=== PATIENT | male | born 1980 | race Caucasian/White ===

== ENCOUNTER 2016-02-18 03:14 | Emergency (ER) | payer OTHER ==
[~2016-02-18] VITALS: Ht 187.9 cm; Wt 106.6 kg
[~2016-02-18 03:14] MED LIST: AMOXICILLIN500 M3 PO; AUGMENTIN 875 M1 TAB PO; BACTRIM DS 8001 TA1 PO; CLARITIN10 MG PO
[2016-02-18] MEDS ORDERED: TAMIFLU 75MG CA75 MG PO (04:13)
== END 2016-02-18 04:44 | disposition home or self-care (01) ==
LOC: ED 03:14
DX: J09.X2 Influenza due to identified novel influenza A virus with other respiratory manifestations (principal); F17.200 Nicotine dependence, unspecified, uncomplicated

== ENCOUNTER → 2016-09-06 | Outpatient (CLI) | payer OTHER ==
[~2016-09-06] MED LIST changes: +TAMIFLU 75MG CA75 MG PO
== END | disposition home or self-care (01) ==
LOC: LAB 13:15
DX: R53.83 Other fatigue (principal)

== ENCOUNTER 2017-04-15 15:31 | Emergency (ER) | payer OTHER ==
[~2017-04-15] VITALS: Ht 187.9 cm; Wt 111.1 kg
[2017-04-15 16:02] LABS: BASO # 0.1 10*3/uL (0.0-0.1); BASO % 0.8 % (0.0-1.0); EOS # 0.3 10*3/uL (0.0-0.4); EOS % 3.9 % (1.0-4.0); HEMATOCRIT 47.3 % (42.0-52.0); HEMOGLOBIN 15.9 g/dl (14.0-18.0); LYMPH # 2.1 10*3/uL (1.3-4.4); LYMPH % 26.8 % (27.0-41.0); MEAN CELL VOLUME 89.6 fl (80.0-94.0); MEAN CORPUSCULAR HGB 30.1 pg (27.0-31.0); MEAN CORPUSCULAR HGB CONC 33.6 g/dl (33.0-37.0); MEAN PLATELET VOLUME 10.6 fl (9.6-12.3); MONO # 0.7 10*3/uL (0.1-1.0); MONO % 9.4 % (3.0-9.0); NEUT # 4.6 10*3/uL (2.3-7.9); NEUT % 58.8 % (47.0-73.0); PLATELET COUNT AUTOMATED 241 10*3/uL (130-400); RED BLOOD COUNT 5.28 10*6/uL (4.50-5.90); RED CELL DISTRI WIDTH 13.5 % (0-14.5); WHITE BLOOD COUNT 7.8 10*3/uL (4.8-10.8)
[2017-04-15 16:16] LABS: ALKALINE PHOSPHATASE 87 U/L (45-117); BUN 11 mg/dl (7-24); CHLORIDE 103 mmol/L (98-107); CREATININE 1.05 mg/dL (0.70-1.30); POTASSIUM 4.2 mmol/L (3.5-5.1); SGOT/AST 32 IU/L (3-35); SGPT/ALT 57 U/L (12-78); SODIUM 137 mmol/L (136-145); TOTAL PROTEIN 7.9 gm/dL (6.4-8.2)
[2017-04-15 16:18] LABS: TROPONIN I < 0.015 ng/ml (<0.045)
== END 2017-04-15 17:26 | disposition home or self-care (01) ==
LOC: ED 15:31
PROVIDERS: Nurse Practitioner Family
DX: R51 Headache (principal); R03.0 Elevated blood-pressure reading, without diagnosis of hypertension; F17.200 Nicotine dependence, unspecified, uncomplicated

== ENCOUNTER 2017-04-22 16:41 | Inpatient (IN) | payer OTHER ==
[2017-04-22] VITALS (8 sets, daily range): BP systolic 139–184; BP diastolic 53–120
[~2017-04-22] VITALS: Ht 187.9 cm; Wt 106.0 kg
[2017-04-22] MEDS ORDERED: CITALOPRAM HYDR10 MG PO (16:44)
[2017-04-22 17:24] LABS: BASO % 0.4 % (0.0-1.0); EOS # 0.1 10*3/uL (0.0-0.4); EOS % 1.1 % (1.0-4.0); HEMATOCRIT 46.5 % (42.0-52.0); HEMOGLOBIN 15.9 g/dl (14.0-18.0); LYMPH # 1.4 10*3/uL (1.3-4.4); LYMPH % 16.2 % (27.0-41.0); MEAN CELL VOLUME 89.4 fl (80.0-94.0); MEAN CORPUSCULAR HGB 30.6 pg (27.0-31.0); MEAN CORPUSCULAR HGB CONC 34.2 g/dl (33.0-37.0); MEAN PLATELET VOLUME 10.7 fl (9.6-12.3); MONO # 0.7 10*3/uL (0.1-1.0); MONO % 7.9 % (3.0-9.0); NEUT # 6.6 10*3/uL (2.3-7.9); NEUT % 74.2 % (47.0-73.0); PLATELET COUNT AUTOMATED 231 10*3/uL (130-400); RED CELL DISTRI WIDTH 13.4 % (0-14.5); WHITE BLOOD COUNT 8.9 10*3/uL (4.8-10.8)
[2017-04-22 17:33] LABS: ACT PARTIAL THROMBO TIME 24.6 SECONDS (20.8-31.5)
[2017-04-22 17:40] LABS: ALBUMIN 4.1 gm/dl (3.1-4.5); ALKALINE PHOSPHATASE 95 U/L (45-117); BUN 12 mg/dl (7-24); CHLORIDE 103 mmol/L (98-107); CREATININE 0.93 mg/dL (0.70-1.30); POTASSIUM 4.2 mmol/L (3.5-5.1); SGOT/AST 36 IU/L (3-35); SGPT/ALT 59 U/L (12-78); SODIUM 135 mmol/L (136-145); TOTAL PROTEIN 8.2 gm/dL (6.4-8.2)
[2017-04-22 17:43] LABS: TROPONIN I < 0.015 ng/ml (<0.045)
[2017-04-23] VITALS (7 sets, daily range): BP systolic 141–190; BP diastolic 78–118
[2017-04-23 07:06] LABS: BASO # 0.1 10*3/uL (0.0-0.1); BASO % 0.8 % (0.0-1.0); EOS # 0.2 10*3/uL (0.0-0.4); EOS % 3.1 % (1.0-4.0); HEMATOCRIT 45.4 % (42.0-52.0); HEMOGLOBIN 15.2 g/dl (14.0-18.0); LYMPH # 2.1 10*3/uL (1.3-4.4); LYMPH % 29.3 % (27.0-41.0); MEAN CELL VOLUME 90.3 fl (80.0-94.0); MEAN CORPUSCULAR HGB 30.2 pg (27.0-31.0); MEAN CORPUSCULAR HGB CONC 33.5 g/dl (33.0-37.0); MEAN PLATELET VOLUME 10.7 fl (9.6-12.3); MONO # 0.7 10*3/uL (0.1-1.0); NEUT % 56.5 % (47.0-73.0); PLATELET COUNT AUTOMATED 211 10*3/uL (130-400); RED BLOOD COUNT 5.03 10*6/uL (4.50-5.90); RED CELL DISTRI WIDTH 13.7 % (0-14.5); WHITE BLOOD COUNT 7.1 10*3/uL (4.8-10.8)
[2017-04-23 07:55] LABS: BUN 12 mg/dl (7-24); CHLORIDE 103 mmol/L (98-107); CHOLESTEROL 153 mg/dL (<200); CREATININE 1.04 mg/dL (0.70-1.30); HDL CHOLESTEROL 26 mg/dl (40-60); LDL CHOLESTEROL 94 mg/dL (9-159); PHOSPHOROUS 3.5 mg/dL (2.5-4.9); POTASSIUM 4.1 mmol/L (3.5-5.1); SODIUM 138 mmol/L (136-145); TRIGLYCERIDES 166 mg/dl (<150); VLDL CHOLESTEROL 33 mg/dL (6-40)
[2017-04-23 08:29] LABS: VITAMIN D, 25-HYDROXY 6.7 ng/mL (30-100)
[2017-04-23 11:59] LABS: URINE AMPHETAMINES < 1000 (1000ng/ml); URINE BARBITURATES > 200 (200ng/ml); URINE BENZODIAZEPINES < 200 (200ng/ml); URINE CANNABINOIDS (THC) < 50 (50ng/ml); URINE COCAINE < 300 (300ng/ml); URINE METHADONE < 300 (300ng/ml); URINE OPIATES < 300 (300ng/ml); URINE PHENCYCLIDINE < 25 (25ng/ml)
[2017-04-24] VITALS: BP 142/92
[2017-04-24 06:23] LABS: BASO # 0.1 10*3/uL (0.0-0.1); BASO % 0.8 % (0.0-1.0); EOS # 0.4 10*3/uL (0.0-0.4); HEMATOCRIT 44.4 % (42.0-52.0); HEMOGLOBIN 14.4 g/dl (14.0-18.0); LYMPH # 2.5 10*3/uL (1.3-4.4); LYMPH % 34.7 % (27.0-41.0); MEAN CELL VOLUME 92.5 fl (80.0-94.0); MEAN CORPUSCULAR HGB CONC 32.4 g/dl (33.0-37.0); MEAN PLATELET VOLUME 11.2 fl (9.6-12.3); MONO # 0.8 10*3/uL (0.1-1.0); MONO % 11.2 % (3.0-9.0); NEUT # 3.5 10*3/uL (2.3-7.9); NEUT % 48.2 % (47.0-73.0); PLATELET COUNT AUTOMATED 224 10*3/uL (130-400); RED CELL DISTRI WIDTH 13.7 % (0-14.5); WHITE BLOOD COUNT 7.2 10*3/uL (4.8-10.8)
[2017-04-24 06:41] LABS: ALBUMIN 3.5 gm/dl (3.1-4.5); BUN 18 mg/dl (7-24); CHLORIDE 102 mmol/L (98-107); CREATININE 1.05 mg/dL (0.70-1.30); PHOSPHOROUS 3.7 mg/dL (2.5-4.9); POTASSIUM 4.4 mmol/L (3.5-5.1); SODIUM 138 mmol/L (136-145)
[2017-04-24 08:00] VITALS: BP 165/110
[2017-04-24 12:00] VITALS: BP 127/77
[2017-04-24] MEDS ORDERED: AMLODIPINE BESYL5 MG PO (14:21)
[2017-04-24] MEDS ORDERED: Zestril,Prinivi40 MG PO (14:21)
== END 2017-04-24 15:55 | disposition home or self-care (01) | DRG 392 ==
LOC: ED 16:41 → 5E 17:51 → EDHOLD 17:51 → 5E 17:58
PROVIDERS: Emergency Medicine; Internal Medicine Nephrology
DX: K21.9 Gastro-esophageal reflux disease without esophagitis (principal); E83.51 Hypocalcemia; I16.1 Hypertensive emergency; E87.1 Hypo-osmolality and hyponatremia; I16.0 Hypertensive urgency; F41.9 Anxiety disorder, unspecified; F32.9 Major depressive disorder, single episode, unspecified; J45.909 Unspecified asthma, uncomplicated; D72.810 Lymphocytopenia; D72.9 Disorder of white blood cells, unspecified; E78.5 Hyperlipidemia, unspecified; F17.210 Nicotine dependence, cigarettes, uncomplicated; Z71.6 Tobacco abuse counseling; Z82.49 Family history of ischemic heart disease and other diseases of the circulatory system; Z81.8 Family history of other mental and behavioral disorders; Z83.3 Family history of diabetes mellitus

== ENCOUNTER 2017-07-23 23:03 | Emergency (ER) | payer OTHER ==
[~2017-07-23] VITALS: Ht 187.9 cm; Wt 106.6 kg
[~2017-07-23 23:03] MED LIST changes: +AMLODIPINE BESYL5 MG PO; +CITALOPRAM HYDR10 MG PO; +Zestril,Prinivi40 MG PO
[2017-07-23] MEDS ORDERED: Lopressor25 MG PO (23:25)
[2017-07-23] MEDS ORDERED: GEMFIBROZIL600 MG PO (23:25)
[2017-07-23] MEDS ORDERED: VITAMIN D31000 UNIT PO (23:26)
[2017-07-23] MEDS ORDERED: CEPHALEXIN500 M1 PO (23:54)
== END 2017-07-24 00:29 | disposition home or self-care (01) ==
LOC: ED 23:03
DX: T22.221A Burn of second degree of right elbow, initial encounter (principal); F17.200 Nicotine dependence, unspecified, uncomplicated; J45.909 Unspecified asthma, uncomplicated; E78.5 Hyperlipidemia, unspecified; G47.33 Obstructive sleep apnea (adult) (pediatric); Z79.899 Other long term (current) drug therapy; X08.8XXA Exposure to other specified smoke, fire and flames, initial encounter; Y93.89 Activity, other specified; Y92.89 Other specified places as the place of occurrence of the external cause; Y99.9 Unspecified external cause status

== ENCOUNTER 2017-10-22 22:19 | Inpatient (IN) | payer OTHER ==
[~2017-10-22] VITALS: Ht 188 cm; Wt 110.8 kg
[2017-10-22] VITALS (9 sets, daily range): BP systolic 190–220; BP diastolic 107–136
--- NOTE | ~2017-10-22 | EKG ---
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
[~2017-10-22 22:19] MED LIST changes: +CEPHALEXIN500 M1 PO; +GEMFIBROZIL600 MG PO; +Lopressor25 MG PO; +VITAMIN D31000 UNIT PO
[2017-10-22 23:25] LABS: BASO # 0.1 10*3/uL (0.0-0.1); BASO % 0.7 % (0.0-1.0); EOS # 0.6 10*3/uL (0.0-0.4); EOS % 5.9 % (1.0-4.0); HEMATOCRIT 46.7 % (42.0-52.0); HEMOGLOBIN 15.7 g/dl (14.0-18.0); LYMPH # 2.1 10*3/uL (1.3-4.4); LYMPH % 21.6 % (27.0-41.0); MEAN CELL VOLUME 90.5 fl (80.0-94.0); MEAN CORPUSCULAR HGB 30.4 pg (27.0-31.0); MEAN CORPUSCULAR HGB CONC 33.6 g/dl (33.0-37.0); MEAN PLATELET VOLUME 10.8 fl (9.6-12.3); MONO # 0.8 10*3/uL (0.1-1.0); MONO % 7.8 % (3.0-9.0); NEUT # 6.2 10*3/uL (2.3-7.9); NEUT % 63.4 % (47.0-73.0); PLATELET COUNT AUTOMATED 195 10*3/uL (130-400); RED BLOOD COUNT 5.16 10*6/uL (4.50-5.90); RED CELL DISTRI WIDTH 13.5 % (0-14.5); WHITE BLOOD COUNT 9.8 10*3/uL (4.8-10.8)
[2017-10-22 23:48] LABS: ALBUMIN 3.8 gm/dl (3.1-4.5); ALKALINE PHOSPHATASE 69 U/L (45-117); BUN 16 mg/dl (7-24); CHLORIDE 104 mmol/L (98-107); CREATININE 1.07 mg/dL (0.70-1.30); POTASSIUM 3.5 mmol/L (3.5-5.1); SGOT/AST 24 IU/L (3-35); SGPT/ALT 64 U/L (12-78); SODIUM 136 mmol/L (136-145); TOTAL PROTEIN 7.4 gm/dL (6.4-8.2)
[2017-10-22 23:49] LABS: TROPONIN I < 0.015 ng/ml (<0.045)
[2017-10-23] VITALS (7 sets, daily range): BP systolic 149–188; BP diastolic 76–112
[2017-10-23 00:13] LABS: BILIRUBIN NEGATIVE (NEGATIVE); BLOOD NEGATIVE (NEGATIVE); CLARITY CLEAR (CLEAR); COLOR YELLOW (YELLOW); GLUCOSE NEGATIVE (NEGATIVE); KETONE NEGATIVE (NEGATIVE); LEUKO ESTERASE NEGATIVE (NEGATIVE); NITRITE NEGATIVE (NEGATIVE); PH 6.5 (5.0-9.0); SPECIFIC GRAVITY 1.015 (1.005-1.030); UROBILINOGEN 0.2 E.U./dl (0.2-1.0)
[2017-10-23] MEDS ORDERED: LOSARTAN POTASS50 M1 PO (00:49)
[2017-10-23 05:46] LABS: BASO # 0.1 10*3/uL (0.0-0.1); BASO % 0.6 % (0.0-1.0); EOS # 0.3 10*3/uL (0.0-0.4); EOS % 2.2 % (1.0-4.0); HEMATOCRIT 48.1 % (42.0-52.0); HEMOGLOBIN 15.9 g/dl (14.0-18.0); LYMPH % 16.5 % (27.0-41.0); MEAN CELL VOLUME 91.6 fl (80.0-94.0); MEAN CORPUSCULAR HGB 30.3 pg (27.0-31.0); MEAN CORPUSCULAR HGB CONC 33.1 g/dl (33.0-37.0); MEAN PLATELET VOLUME 10.9 fl (9.6-12.3); MONO # 0.9 10*3/uL (0.1-1.0); MONO % 7.4 % (3.0-9.0); NEUT # 8.8 10*3/uL (2.3-7.9); NEUT % 72.7 % (47.0-73.0); PLATELET COUNT AUTOMATED 225 10*3/uL (130-400); RED BLOOD COUNT 5.25 10*6/uL (4.50-5.90); RED CELL DISTRI WIDTH 13.6 % (0-14.5); WHITE BLOOD COUNT 12.1 10*3/uL (4.8-10.8)
[2017-10-23 06:02] LABS: ALBUMIN 3.6 gm/dl (3.1-4.5); BUN 15 mg/dl (7-24); CHLORIDE 102 mmol/L (98-107); CHOLESTEROL 189 mg/dL (<200); CREATININE 0.92 mg/dL (0.70-1.30); PHOSPHOROUS 3.2 mg/dL (2.5-4.9); POTASSIUM 3.6 mmol/L (3.5-5.1); SGOT/AST 18 IU/L (3-35); SGPT/ALT 59 U/L (12-78); SODIUM 138 mmol/L (136-145); TOTAL PROTEIN 7.4 gm/dL (6.4-8.2); TRIGLYCERIDES 268 mg/dl (<150); VLDL CHOLESTEROL 54 mg/dL (6-40)
[2017-10-23 06:03] LABS: ALKALINE PHOSPHATASE 73 U/L (45-117); HDL CHOLESTEROL 32 mg/dl (40-60); LDL CHOLESTEROL 103 mg/dL (9-159)
[2017-10-23 06:09] LABS: FREE T4 1.04 ng/dl (0.76-1.46)
[2017-10-23 06:26] LABS: ACT PARTIAL THROMBO TIME 21.4 SECONDS (20.8-31.5)
[2017-10-23 07:55] LABS: VITAMIN D, 25-HYDROXY 11.8 ng/mL (30-100)
[2017-10-24] VITALS: BP 166/90
[2017-10-24 06:27] LABS: BASO # 0.1 10*3/uL (0.0-0.1); BASO % 0.8 % (0.0-1.0); EOS # 0.7 10*3/uL (0.0-0.4); EOS % 8.1 % (1.0-4.0); HEMATOCRIT 47.1 % (42.0-52.0); HEMOGLOBIN 15.4 g/dl (14.0-18.0); LYMPH # 2.7 10*3/uL (1.3-4.4); LYMPH % 30.1 % (27.0-41.0); MEAN CELL VOLUME 92.4 fl (80.0-94.0); MEAN CORPUSCULAR HGB 30.2 pg (27.0-31.0); MEAN CORPUSCULAR HGB CONC 32.7 g/dl (33.0-37.0); MONO # 0.8 10*3/uL (0.1-1.0); MONO % 8.7 % (3.0-9.0); NEUT # 4.6 10*3/uL (2.3-7.9); PLATELET COUNT AUTOMATED 195 10*3/uL (130-400); RED CELL DISTRI WIDTH 13.5 % (0-14.5); WHITE BLOOD COUNT 8.9 10*3/uL (4.8-10.8)
[2017-10-24 06:34] LABS: BUN 18 mg/dl (7-24); CHLORIDE 105 mmol/L (98-107); POTASSIUM 3.7 mmol/L (3.5-5.1); SODIUM 140 mmol/L (136-145)
[2017-10-24 08:00] VITALS: BP 180/114
[2017-10-24 12:00] VITALS: BP 154/80
[2017-10-24 16:00] VITALS: BP 176/90
[2017-10-24 18:35] VITALS: BP 184/112
[2017-10-24 20:37] VITALS: BP 176/96
[2017-10-25] VITALS: BP 163/95
[2017-10-25 06:26] LABS: BASO # 0.1 10*3/uL (0.0-0.1); BASO % 0.9 % (0.0-1.0); EOS # 0.6 10*3/uL (0.0-0.4); EOS % 6.6 % (1.0-4.0); HEMATOCRIT 47.2 % (42.0-52.0); HEMOGLOBIN 15.6 g/dl (14.0-18.0); LYMPH # 2.6 10*3/uL (1.3-4.4); LYMPH % 27.2 % (27.0-41.0); MEAN CELL VOLUME 91.7 fl (80.0-94.0); MEAN CORPUSCULAR HGB 30.3 pg (27.0-31.0); MEAN CORPUSCULAR HGB CONC 33.1 g/dl (33.0-37.0); MEAN PLATELET VOLUME 11.1 fl (9.6-12.3); MONO # 0.8 10*3/uL (0.1-1.0); MONO % 8.9 % (3.0-9.0); NEUT # 5.3 10*3/uL (2.3-7.9); NEUT % 56.1 % (47.0-73.0); PLATELET COUNT AUTOMATED 200 10*3/uL (130-400); RED BLOOD COUNT 5.15 10*6/uL (4.50-5.90); RED CELL DISTRI WIDTH 13.4 % (0-14.5); WHITE BLOOD COUNT 9.4 10*3/uL (4.8-10.8)
[2017-10-25 06:56] LABS: BUN 21 mg/dl (7-24); CHLORIDE 100 mmol/L (98-107); CREATININE 1.02 mg/dL (0.70-1.30); POTASSIUM 3.6 mmol/L (3.5-5.1); SODIUM 135 mmol/L (136-145)
[2017-10-25 08:00] VITALS: BP 182/109
[2017-10-25 12:00] VITALS: BP 156/98
[2017-10-25 16:00] VITALS: BP 157/108
[2017-10-25 17:59] VITALS: BP 160/108
[2017-10-25 20:00] VITALS: BP 150/92
[2017-10-25 23:49] LABS: URINE CREATININE RANDOM 75.6 mg/dL
[2017-10-26] VITALS: BP 148/99
[2017-10-26 12:00] VITALS: BP 109/72
[2017-10-26 16:00] VITALS: BP 108/55
[2017-10-26 20:00] VITALS: BP 131/80
[2017-10-27] VITALS: BP 137/82
[2017-10-27 05:59] LABS: BASO # 0.1 10*3/uL (0.0-0.1); BASO % 0.9 % (0.0-1.0); EOS # 0.6 10*3/uL (0.0-0.4); EOS % 7.8 % (1.0-4.0); HEMATOCRIT 49.6 % (42.0-52.0); LYMPH # 2.6 10*3/uL (1.3-4.4); LYMPH % 32.5 % (27.0-41.0); MEAN CELL VOLUME 94.1 fl (80.0-94.0); MEAN CORPUSCULAR HGB 30.4 pg (27.0-31.0); MEAN CORPUSCULAR HGB CONC 32.3 g/dl (33.0-37.0); MEAN PLATELET VOLUME 11.3 fl (9.6-12.3); MONO # 0.9 10*3/uL (0.1-1.0); MONO % 11.5 % (3.0-9.0); NEUT # 3.8 10*3/uL (2.3-7.9); NEUT % 46.9 % (47.0-73.0); PLATELET COUNT AUTOMATED 215 10*3/uL (130-400); RED BLOOD COUNT 5.27 10*6/uL (4.50-5.90); RED CELL DISTRI WIDTH 13.5 % (0-14.5)
[2017-10-27 06:16] LABS: CHLORIDE 100 mmol/L (98-107); CREATININE 1.32 mg/dL (0.70-1.30); POTASSIUM 3.7 mmol/L (3.5-5.1); SODIUM 138 mmol/L (136-145)
[2017-10-27 06:35] LABS: BUN 33 mg/dl (7-24)
[2017-10-27 08:00] VITALS: BP 118/76
[2017-10-27] MEDS ORDERED: LOSARTAN POTASS50 M1 PO (10:41)
[2017-10-27] MEDS ORDERED: Lopressor25 MG PO (10:41)
[2017-10-27] MEDS ORDERED: NIFEDIPINE ER30 M1 PO (10:41)
[2017-10-29 08:09] LABS: METANEPHRINE, PLASMA 14 pg/mL (0-62); NORMETANEPHRINE, PLASMA 51 pg/mL (0-145)
== END 2017-10-27 11:54 | disposition home or self-care (01) | DRG 305 ==
LOC: ED 22:19 → ICCU 23:54 → EDHOLD 23:54 → 4E 23:54 → ICCU 10-23 00:08 → 4E 10-23 13:18
PROVIDERS: Family Medicine; Internal Medicine; Nurse Practitioner Family; Student in an Organized Health Care Education/Training Program
DX: I16.0 Hypertensive urgency (principal); D72.810 Lymphocytopenia; R73.9 Hyperglycemia, unspecified; E83.41 Hypermagnesemia; R00.1 Bradycardia, unspecified; J45.20 Mild intermittent asthma, uncomplicated; F32.9 Major depressive disorder, single episode, unspecified; F41.9 Anxiety disorder, unspecified; E78.5 Hyperlipidemia, unspecified; G47.33 Obstructive sleep apnea (adult) (pediatric); I11.9 Hypertensive heart disease without heart failure; M32.9 Systemic lupus erythematosus, unspecified; Z82.49 Family history of ischemic heart disease and other diseases of the circulatory system; Z83.3 Family history of diabetes mellitus; Z72.0 Tobacco use; Z71.6 Tobacco abuse counseling; Z81.8 Family history of other mental and behavioral disorders; Z84.89 Family history of other specified conditions; Z88.8 Allergy status to other drugs, medicaments and biological substances; Z79.899 Other long term (current) drug therapy

== ENCOUNTER 2017-12-12 06:17 | Emergency (ER) | payer OTHER ==
[~2017-12-12] VITALS: Ht 187.9 cm; Wt 106.1 kg
[~2017-12-12 06:17] MED LIST changes: +LOSARTAN POTASS50 M1 PO; +NIFEDIPINE ER30 M1 PO
== END 2017-12-12 06:47 | disposition home or self-care (01) ==
LOC: ED 06:17
DX: L02.11 Cutaneous abscess of neck (principal); I10 Essential (primary) hypertension; E78.5 Hyperlipidemia, unspecified; J45.909 Unspecified asthma, uncomplicated; Z87.891 Personal history of nicotine dependence; Z79.899 Other long term (current) drug therapy

== ENCOUNTER → 2018-09-15 | Outpatient (CLI) | payer OTHER | END | disposition home or self-care (01) | LOC: NM 07:00 | DX: R10.84 Generalized abdominal pain (principal); R10.10 Upper abdominal pain, unspecified ==

== ENCOUNTER 2019-05-12 19:24 | Emergency (ER) | payer SELFPAY ==
[~2019-05-12] VITALS: Ht 187.9 cm; Wt 106.6 kg
[2019-05-12 20:29] LABS: BASO # 0.1 10*3/uL (0.0-0.1); EOS # 0.3 10*3/uL (0.0-0.4); EOS % 3.8 % (1.0-4.0); HEMATOCRIT 49.8 % (42.0-52.0); HEMOGLOBIN 16.6 g/dl (14.0-18.0); LYMPH # 1.7 10*3/uL (1.3-4.4); LYMPH % 22.6 % (27.0-41.0); MEAN CELL VOLUME 92.1 fl (80.0-94.0); MEAN CORPUSCULAR HGB 30.7 pg (27.0-31.0); MEAN CORPUSCULAR HGB CONC 33.3 g/dl (33.0-37.0); MEAN PLATELET VOLUME 10.7 fl (9.6-12.3); MONO # 0.7 10*3/uL (0.1-1.0); MONO % 9.5 % (3.0-9.0); NEUT # 4.6 10*3/uL (2.3-7.9); NEUT % 62.4 % (47.0-73.0); PLATELET COUNT AUTOMATED 223 10*3/uL (130-400); RED BLOOD COUNT 5.41 10*6/uL (4.50-5.90); RED CELL DISTRI WIDTH 13.4 % (0-14.5); WHITE BLOOD COUNT 7.3 10*3/uL (4.8-10.8)
[2019-05-12 20:40] LABS: ACT PARTIAL THROMBO TIME 27.6 SECONDS (20.0-32.1)
[2019-05-12] MEDS ORDERED: LISINOPRIL40 MG PO (20:41)
[2019-05-12] MEDS ORDERED: LOPRESSOR50 M1 PO (20:42)
[2019-05-12] MEDS ORDERED: NIFEDIPINE ER60 M1 PO (20:43)
[2019-05-12 20:47] LABS: ALBUMIN 3.6 gm/dl (3.1-4.5); ALKALINE PHOSPHATASE 98 U/L (45-117); BUN 19 mg/dl (7-24); CHLORIDE 107 mmol/L (98-107); CREATININE 1.21 mg/dL (0.70-1.30); LIPASE 83 U/L (73-393); POTASSIUM 3.9 mmol/L (3.5-5.1); SGOT/AST 31 IU/L (3-35); SGPT/ALT 51 U/L (12-78); SODIUM 138 mmol/L (136-145); TOTAL PROTEIN 7.8 gm/dL (6.4-8.2)
[2019-05-12] MEDS ORDERED: IBU800 MG PO (21:56)
[2019-05-12] MEDS ORDERED: CYCLOBENZAPRINE10 MG PO (21:56)
== END 2019-05-12 22:15 | disposition home or self-care (01) ==
LOC: ED 19:24
PROVIDERS: Emergency Medicine
DX: S29.8XXA Other specified injuries of thorax, initial encounter (principal); S60.812A Abrasion of left wrist, initial encounter; R10.12 Left upper quadrant pain; I10 Essential (primary) hypertension; E78.00 Pure hypercholesterolemia, unspecified; J45.909 Unspecified asthma, uncomplicated; F17.200 Nicotine dependence, unspecified, uncomplicated; Z91.048 Other nonmedicinal substance allergy status; Z79.899 Other long term (current) drug therapy; V86.59XA Driver of other special all-terrain or other off-road motor vehicle injured in nontraffic accident, initial encounter; Y93.I9 Activity, other involving external motion; Y92.828 Other wilderness area as the place of occurrence of the external cause; Y99.8 Other external cause status

== ENCOUNTER 2019-11-22 06:36 | Emergency (ER) | payer MEDICAID ==
[~2019-11-22] VITALS: Ht 187.9 cm; Wt 106.6 kg
[~2019-11-22 06:36] MED LIST changes: +CYCLOBENZAPRINE10 MG PO; +IBU800 MG PO; +LISINOPRIL40 MG PO; +LOPRESSOR50 M1 PO; +NIFEDIPINE ER60 M1 PO
[2019-11-22] MEDS ORDERED: Motrin,Rufen800 MG PO (08:06)
== END 2019-11-22 08:56 | disposition home or self-care (01) ==
LOC: ED 06:36
DX: M72.2 Plantar fascial fibromatosis (principal); Z79.899 Other long term (current) drug therapy

== ENCOUNTER → 2020-01-14 | Outpatient (CLI) | payer OTHER ==
[~2020-01-14] MED LIST changes: +Motrin,Rufen800 MG PO
== END | disposition home or self-care (01) ==
LOC: COVID19 10:47
PROVIDERS: ATTEND Family Medicine
DX: Z20.828 Contact with and (suspected) exposure to other viral communicable diseases (principal)

== ENCOUNTER → 2020-05-23 | Outpatient (CLI) | payer OTHER ==
[2020-05-23 07:56] LABS: BASO # 0.1 10*3/uL (0.0-0.1); BASO % 0.8 % (0.0-1.0); EOS # 0.4 10*3/uL (0.0-0.4); EOS % 5.4 % (1.0-4.0); HEMATOCRIT 48.1 % (42.0-52.0); LYMPH # 2.7 10*3/uL (1.3-4.4); LYMPH % 34.8 % (27.0-41.0); MEAN CELL VOLUME 91.6 fl (80.0-94.0); MEAN CORPUSCULAR HGB 30.1 pg (27.0-31.0); MEAN CORPUSCULAR HGB CONC 32.8 g/dl (33.0-37.0); MEAN PLATELET VOLUME 11.5 fl (9.6-12.3); MONO # 0.7 10*3/uL (0.1-1.0); MONO % 9.3 % (3.0-9.0); NEUT # 3.8 10*3/uL (2.3-7.9); NEUT % 49.2 % (47.0-73.0); PLATELET COUNT AUTOMATED 206 10*3/uL (130-400); RED BLOOD COUNT 5.25 10*6/uL (4.50-5.90); RED CELL DISTRI WIDTH 13.3 % (0-14.5); RETICULOCYTE % 2.44 % (0.50-2.50); WHITE BLOOD COUNT 7.7 10*3/uL (4.8-10.8)
[2020-05-23 08:00] LABS: BILIRUBIN Negative (Negative); BLOOD Negative (Negative); CLARITY Clear (Clear); COLOR Yellow (Yellow); GLUCOSE 2+ (Negative); KETONE Negative (Negative); LEUKO ESTERASE Negative (Negative); NITRITE Negative (Negative); SPECIFIC GRAVITY 1.015 (1.001-1.030); UROBILINOGEN 0.2 E.U./dl (0.0-1.0)
[2020-05-23 08:17] LABS: ALBUMIN 3.7 gm/dl (3.1-4.5); ALKALINE PHOSPHATASE 107 U/L (45-117); CHLORIDE 105 mmol/L (98-107); CHOLESTEROL 217 mg/dL (<200); CREATININE 0.96 mg/dL (0.70-1.30); GAMMA GLUTAMYL TRANSPEPTIDASE 25 U/L (15-85); HDL CHOLESTEROL 28 mg/dl (40-60); IRON 47 ug/dL (65-175); LIPASE 187 U/L (73-393); SGOT/AST 42 IU/L (3-35); SGPT/ALT 118 U/L (12-78); SODIUM 137 mmol/L (136-145); TOTAL PROTEIN 7.8 gm/dL (6.4-8.2); TRIGLYCERIDES 541 mg/dl (<150)
[2020-05-23 08:24] LABS: TOTAL IRON BINDING CAPACITY 346 ug/dl (250-450)
[2020-05-23 08:36] LABS: BUN 10 mg/dl (7-24)
[2020-05-23 08:45] LABS: BACTERIA TRACE; EPITHELIAL CELLS 0-2; MUCOUS TRACE
[2020-05-23 08:46] LABS: RBC 0-2 rbc/hpf (0-2)
[2020-05-23 09:13] LABS: FERRITIN 155.8 ng/mL (22.0-322.0); VITAMIN D, 25-HYDROXY 10.6 ng/mL (30-100)
[2020-05-24 08:08] LABS: H PYLORI IGG AB 0.24 (0.00-0.79)
[2020-05-24 13:07] LABS: H.PYLORI IGM <9.0 units (0.0-8.9)
[2020-05-24 15:07] LABS: H.PYLORI IgA <9.0 units (0.0-8.9)
== END | disposition home or self-care (01) ==
LOC: LAB 07:03 → US 07:30
PROVIDERS: ATTEND Family Medicine
DX: Z12.5 Encounter for screening for malignant neoplasm of prostate (principal); K76.0 Fatty (change of) liver, not elsewhere classified; N28.1 Cyst of kidney, acquired; R10.84 Generalized abdominal pain; R10.2 Pelvic and perineal pain; E55.9 Vitamin D deficiency, unspecified; R53.83 Other fatigue; R79.89 Other specified abnormal findings of blood chemistry; E78.5 Hyperlipidemia, unspecified

== ENCOUNTER → 2020-05-30 | Outpatient (CLI) | payer OTHER | END | disposition home or self-care (01) | LOC: NM 06:52 | PROVIDERS: ATTEND Family Medicine | DX: R10.84 Generalized abdominal pain (principal) ==

== ENCOUNTER 2020-10-08 22:21 | Emergency (ER) | payer OTHER ==
[~2020-10-08] VITALS: Ht 187.9 cm; Wt 111.1 kg
[2020-10-08] MEDS ORDERED: LOSARTAN POTASS50 M1 PO (22:31)
[2020-10-08] MEDS ORDERED: NAPROSYN500 MG PO (23:01)
== END 2020-10-08 23:15 | disposition home or self-care (01) ==
LOC: ED 22:21
DX: G56.01 Carpal tunnel syndrome, right upper limb (principal); F17.200 Nicotine dependence, unspecified, uncomplicated; Z79.899 Other long term (current) drug therapy

== ENCOUNTER 2020-11-24 15:45 | Emergency (ER) | payer OTHER ==
[~2020-11-24 15:45] MED LIST changes: +NAPROSYN500 MG PO
== END 2020-11-24 23:07 | disposition left against medical advice (07) ==
LOC: ED 15:45
DX: K62.89 Other specified diseases of anus and rectum (principal); Z53.21 Procedure and treatment not carried out due to patient leaving prior to being seen by health care provider

== ENCOUNTER 2021-02-21 18:26 | Emergency (ER) | payer OTHER ==
[~2021-02-21] VITALS: Ht 187.9 cm; Wt 106.6 kg
[2021-02-21 20:19] LABS: BASO % 0.3 % (0.0-1.0); EOS # 0.1 10*3/uL (0.0-0.4); EOS % 2.7 % (1.0-4.0); HEMATOCRIT 45.9 % (42.0-52.0); LYMPH # 1.3 10*3/uL (1.3-4.4); LYMPH % 37.5 % (27.0-41.0); MEAN CELL VOLUME 90.9 fl (80.0-94.0); MEAN CORPUSCULAR HGB 30.5 pg (27.0-31.0); MEAN CORPUSCULAR HGB CONC 33.6 g/dl (33.0-37.0); MEAN PLATELET VOLUME 11.4 fl (9.6-12.3); MONO # 0.4 10*3/uL (0.1-1.0); MONO % 10.7 % (3.0-9.0); NEUT # 1.6 10*3/uL (2.3-7.9); NEUT % 48.8 % (47.0-73.0); PLATELET COUNT AUTOMATED 171 10*3/uL (130-400); RED BLOOD COUNT 5.05 10*6/uL (4.50-5.90); RED CELL DISTRI WIDTH 13.1 % (0-14.5); WHITE BLOOD COUNT 3.4 10*3/uL (4.8-10.8)
[2021-02-21 20:38] LABS: ALBUMIN 3.5 gm/dl (3.1-4.5); ALKALINE PHOSPHATASE 77 U/L (45-117); BUN 22 mg/dl (7-24); CHLORIDE 109 mmol/L (98-107); CREATININE 0.88 mg/dL (0.70-1.30); POTASSIUM 4.6 mmol/L (3.5-5.1); SGOT/AST 40 IU/L (3-35); SGPT/ALT 68 U/L (12-78); SODIUM 138 mmol/L (136-145); TOTAL PROTEIN 7.4 gm/dL (6.4-8.2)
== END 2021-02-21 21:27 | disposition home or self-care (01) ==
LOC: ED 18:26
PROVIDERS: Internal Medicine
DX: U07.1 COVID-19 (principal); B34.9 Viral infection, unspecified; R73.9 Hyperglycemia, unspecified; D72.819 Decreased white blood cell count, unspecified; F17.200 Nicotine dependence, unspecified, uncomplicated; Z79.899 Other long term (current) drug therapy

== ENCOUNTER 2021-03-18 19:04 | Emergency (ER) | payer OTHER ==
[~2021-03-18] VITALS: Ht 187.9 cm; Wt 106.6 kg
[2021-03-18 19:43] LABS: BASO % 0.4 % (0.0-1.0); EOS # 0.2 10*3/uL (0.0-0.4); EOS % 2.2 % (1.0-4.0); HEMATOCRIT 45.2 % (42.0-52.0); LYMPH # 1.7 10*3/uL (1.3-4.4); LYMPH % 21.5 % (27.0-41.0); MEAN CORPUSCULAR HGB 30.5 pg (27.0-31.0); MEAN CORPUSCULAR HGB CONC 33.8 g/dl (33.0-37.0); MEAN PLATELET VOLUME 10.6 fl (9.6-12.3); MONO # 0.7 10*3/uL (0.1-1.0); NEUT # 5.2 10*3/uL (2.3-7.9); NEUT % 66.8 % (47.0-73.0); PLATELET COUNT AUTOMATED 246 10*3/uL (130-400); RED BLOOD COUNT 5.02 10*6/uL (4.50-5.90); RED CELL DISTRI WIDTH 13.2 % (0-14.5); WHITE BLOOD COUNT 7.8 10*3/uL (4.8-10.8)
[2021-03-18 19:58] LABS: ALBUMIN 3.5 gm/dl (3.1-4.5); ALKALINE PHOSPHATASE 91 U/L (45-117); BUN 11 mg/dl (7-24); CHLORIDE 106 mmol/L (98-107); POTASSIUM 3.7 mmol/L (3.5-5.1); SGOT/AST 43 IU/L (3-35); SGPT/ALT 81 U/L (12-78); SODIUM 138 mmol/L (136-145); TOTAL PROTEIN 7.5 gm/dL (6.4-8.2)
[2021-03-18 21:24] LABS: BILIRUBIN Negative (Negative); BLOOD Negative (Negative); CLARITY Clear (Clear); COLOR Yellow (Yellow); GLUCOSE Negative (Negative); KETONE Negative (Negative); LEUKO ESTERASE Negative (Negative); NITRITE Negative (Negative); PH 5.5 (4.5-8.0); SPECIFIC GRAVITY >= 1.030 (1.001-1.030)
[2021-03-18 21:31] LABS: HYALINE CAST TNTC; MUCOUS TRACE; RBC 0-2 rbc/hpf (0-2)
[2021-03-18] MEDS ORDERED: METRONIDAZOLE500 M1 PO (23:10)
[2021-03-18] MEDS ORDERED: CIPRO500 MG PO (23:10)
== END 2021-03-18 23:35 | disposition home or self-care (01) ==
LOC: ED 19:04
PROVIDERS: Physician Assistant
DX: K52.9 Noninfective gastroenteritis and colitis, unspecified (principal); Z20.2 Contact with and (suspected) exposure to infections with a predominantly sexual mode of transmission; Z90.49 Acquired absence of other specified parts of digestive tract; Z79.899 Other long term (current) drug therapy; Z87.891 Personal history of nicotine dependence

== ENCOUNTER 2021-10-01 18:39 | Emergency (ER) | payer OTHER ==
[~2021-10-01] VITALS: Ht 187.9 cm; Wt 107.0 kg
[~2021-10-01 18:39] MED LIST changes: +CIPRO500 MG PO; +METRONIDAZOLE500 M1 PO
[2021-10-01] MEDS ORDERED: PROAIR HFA8.5 GM INH (22:35)
== END 2021-10-01 23:53 | disposition home or self-care (01) ==
LOC: ED 18:39
DX: U07.1 COVID-19 (principal); I10 Essential (primary) hypertension; E11.9 Type 2 diabetes mellitus without complications; E78.5 Hyperlipidemia, unspecified; J45.909 Unspecified asthma, uncomplicated; F17.200 Nicotine dependence, unspecified, uncomplicated; Z79.899 Other long term (current) drug therapy

== ENCOUNTER 2021-12-26 08:28 | Emergency (ER) | payer OTHER ==
[~2021-12-26] VITALS: Ht 182.8 cm; Wt 105.7 kg
[~2021-12-26 08:28] MED LIST changes: +PROAIR HFA8.5 GM INH
[2021-12-26] MEDS ORDERED: VIBRA-TAB100 MG PO (09:42)
== END 2021-12-26 09:46 | disposition home or self-care (01) ==
LOC: ED 08:28
DX: L02.214 Cutaneous abscess of groin (principal); F17.200 Nicotine dependence, unspecified, uncomplicated; Z91.048 Other nonmedicinal substance allergy status; Z79.899 Other long term (current) drug therapy; Z79.2 Long term (current) use of antibiotics

== ENCOUNTER → 2021-12-28 | Outpatient (CLI) | payer OTHER ==
[~2021-12-28] MED LIST changes: +VIBRA-TAB100 MG PO
== END | disposition home or self-care (01) ==
LOC: WOUNDCARE 00:55
PROVIDERS: ATTEND Nurse Practitioner Family
DX: L02.91 Cutaneous abscess, unspecified (principal); I10 Essential (primary) hypertension; F17.200 Nicotine dependence, unspecified, uncomplicated; Z90.49 Acquired absence of other specified parts of digestive tract

== ENCOUNTER → 2022-01-01 | Outpatient (CLI) | payer OTHER | END | disposition home or self-care (01) | LOC: WOUNDCARE 01:43 | PROVIDERS: ATTEND Nurse Practitioner Family | DX: L02.91 Cutaneous abscess, unspecified (principal); I10 Essential (primary) hypertension; F17.200 Nicotine dependence, unspecified, uncomplicated; Z90.49 Acquired absence of other specified parts of digestive tract ==

== ENCOUNTER 2022-03-12 08:34 | Emergency (ER) | payer OTHER ==
[~2022-03-12] VITALS: Wt 106.6 kg
[2022-03-12 09:38] LABS: BASO # 0.1 10*3/uL (0.0-0.1); BASO % 0.6 % (0.0-1.0); EOS # 0.5 10*3/uL (0.0-0.4); EOS % 5.5 % (1.0-4.0); HEMATOCRIT 48.8 % (42.0-52.0); LYMPH # 1.9 10*3/uL (1.3-4.4); MEAN CORPUSCULAR HGB 29.9 pg (27.0-31.0); MEAN CORPUSCULAR HGB CONC 33.2 g/dl (33.0-37.0); MEAN PLATELET VOLUME 10.7 fl (9.6-12.3); MONO # 0.9 10*3/uL (0.1-1.0); MONO % 10.2 % (3.0-9.0); NEUT % 60.5 % (47.0-73.0); PLATELET COUNT AUTOMATED 253 10*3/uL (130-400); RED BLOOD COUNT 5.42 10*6/uL (4.50-5.90); RED CELL DISTRI WIDTH 13.1 % (0-14.5); WHITE BLOOD COUNT 8.3 10*3/uL (4.8-10.8)
[2022-03-12 09:54] LABS: ALKALINE PHOSPHATASE 81 U/L (46-116); BUN 12 mg/dl (9-23); CHLORIDE 106 mmol/L (98-107); LIPASE 41 U/L (12-53); POTASSIUM 3.7 mmol/L (3.4-5.1); SGPT/ALT 40 U/L (10-49); TOTAL PROTEIN 7.1 gm/dL (6.0-8.0)
[2022-03-12] MEDS ORDERED: FLONASE ALLERG9.9 ML NAS (11:46)
[2022-03-12] MEDS ORDERED: AMOX-CLAV 875-1 EACH PO (11:46)
== END 2022-03-12 11:58 | disposition home or self-care (01) ==
LOC: ED 08:34
PROVIDERS: Emergency Medicine
DX: J01.90 Acute sinusitis, unspecified (principal); Z91.09 Other allergy status, other than to drugs and biological substances; F17.200 Nicotine dependence, unspecified, uncomplicated

== ENCOUNTER 2022-05-20 10:05 | Emergency (ER) | payer OTHER ==
[~2022-05-20] VITALS: Ht 187.9 cm; Wt 108.9 kg
[~2022-05-20 10:05] MED LIST changes: +AMOX-CLAV 875-1 EACH PO; +FLONASE ALLERG9.9 ML NAS
[2022-05-20] MEDS ORDERED: HYDROCODONE-AC1 EAC1 PO (12:05)
== END 2022-05-20 12:44 | disposition home or self-care (01) ==
LOC: ED 10:05
DX: S22.42XA Multiple fractures of ribs, left side, initial encounter for closed fracture (principal); M25.562 Pain in left knee; I10 Essential (primary) hypertension; F41.9 Anxiety disorder, unspecified; J45.909 Unspecified asthma, uncomplicated; E78.00 Pure hypercholesterolemia, unspecified; Z88.8 Allergy status to other drugs, medicaments and biological substances; Z87.891 Personal history of nicotine dependence; W10.9XXA Fall (on) (from) unspecified stairs and steps, initial encounter; Y93.89 Activity, other specified; Y92.89 Other specified places as the place of occurrence of the external cause; Y99.8 Other external cause status

== ENCOUNTER → 2022-06-06 | Outpatient (CLI) | payer OTHER ==
[~2022-06-06] MED LIST changes: +HYDROCODONE-AC1 EAC1 PO
== END | disposition home or self-care (01) ==
LOC: MRI 08:24
PROVIDERS: ATTEND Family Medicine
DX: S83.242A Other tear of medial meniscus, current injury, left knee, initial encounter (principal); M22.42 Chondromalacia patellae, left knee; X58.XXXA Exposure to other specified factors, initial encounter; Y93.89 Activity, other specified; Y92.89 Other specified places as the place of occurrence of the external cause; Y99.8 Other external cause status

== ENCOUNTER → 2022-12-20 | Outpatient (CLI) | payer OTHER ==
[2022-12-20 10:44] LABS: BASO # 0.1 10*3/uL (0.0-0.1); EOS # 0.4 10*3/uL (0.0-0.4); EOS % 5.8 % (1.0-4.0); HEMATOCRIT 47.8 % (42.0-52.0); LYMPH # 1.9 10*3/uL (1.3-4.4); LYMPH % 26.7 % (27.0-41.0); MEAN CORPUSCULAR HGB 32.2 pg (27.0-31.0); MEAN CORPUSCULAR HGB CONC 35.8 g/dl (33.0-37.0); MEAN PLATELET VOLUME 11.7 fl (9.6-12.3); MONO # 0.6 10*3/uL (0.1-1.0); MONO % 8.8 % (3.0-9.0); NEUT # 4.2 10*3/uL (2.3-7.9); NEUT % 57.4 % (47.0-73.0); PLATELET COUNT AUTOMATED 220 10*3/uL (130-400); RED BLOOD COUNT 5.31 10*6/uL (4.50-5.90); RED CELL DISTRI WIDTH 12.8 % (0-14.5); RETICULOCYTE % 2.45 % (0.50-2.50); WHITE BLOOD COUNT 7.2 10*3/uL (4.8-10.8)
[2022-12-20 10:53] LABS: BILIRUBIN Negative (Negative); BLOOD Negative (Negative); CLARITY Clear (Clear); COLOR Yellow (Yellow); GLUCOSE 3+ (Negative); KETONE Negative (Negative); LEUKO ESTERASE Negative (Negative); NITRITE Negative (Negative); SPECIFIC GRAVITY >= 1.030 (1.001-1.030); UROBILINOGEN 0.2 E.U./dl (0.0-1.0)
[2022-12-20 11:04] LABS: EPITHELIAL CELLS 0-2; RBC 0-2 rbc/hpf (0-2)
[2022-12-20 11:13] LABS: ALKALINE PHOSPHATASE 100 U/L (46-116); BUN 14 mg/dl (9-23); CHLORIDE 103 mmol/L (98-107); CHOLESTEROL 199 mg/dL (<200); GAMMA GLUTAMYL TRANSPEPTIDASE 34 U/L (0-73); POTASSIUM 4.1 mmol/L (3.4-5.1); SGPT/ALT 133 U/L (5-49); T3 UPTAKE 19.5 % (22.4-36.7); THYROXINE (T4) TOTAL 7.8 ug/dl (4.5-10.9); TOTAL PROTEIN 7.5 gm/dL (6.0-8.0); TRIGLYCERIDES 588 mg/dl (<150)
[2022-12-20 11:20] LABS: VITAMIN D, 25-HYDROXY 8.7 ng/mL (30-100)
== END | disposition home or self-care (01) ==
LOC: LAB 09:49
PROVIDERS: ATTEND Family Medicine
DX: E78.5 Hyperlipidemia, unspecified (principal); E55.9 Vitamin D deficiency, unspecified; R79.89 Other specified abnormal findings of blood chemistry; R53.83 Other fatigue; R74.8 Abnormal levels of other serum enzymes

== ENCOUNTER 2023-01-24 18:43 | Emergency (ER) | payer OTHER ==
[~2023-01-24] VITALS: Ht 187.9 cm; Wt 108.9 kg
[2023-01-24] MEDS ORDERED: PENICILLIN VK500 MG PO (19:13)
== END 2023-01-24 19:28 | disposition home or self-care (01) ==
LOC: ED 18:43
DX: K02.9 Dental caries, unspecified (principal); K08.89 Other specified disorders of teeth and supporting structures; I10 Essential (primary) hypertension; F41.9 Anxiety disorder, unspecified; J45.909 Unspecified asthma, uncomplicated; E78.00 Pure hypercholesterolemia, unspecified; Z88.8 Allergy status to other drugs, medicaments and biological substances; F17.200 Nicotine dependence, unspecified, uncomplicated

== ENCOUNTER 2023-06-27 09:23 | Inpatient (IN) | payer SELFPAY ==
[~2023-06-27] VITALS: Ht 190.5 cm; Wt 98.6 kg
[2023-06-27] VITALS (12 sets, daily range): BP systolic 139–208; BP diastolic 82–124
[~2023-06-27 09:23] MED LIST changes: +PENICILLIN VK500 MG PO
[2023-06-27] MEDS ORDERED: Labetalol Hydrochloride 20 MG/4 ML SYR IV ONE ×3 (10:05→13:15)
[2023-06-27 10:09] LABS: BASO # 0.1 10*3/uL (0.0-0.1); BASO % 0.8 % (0.0-1.0); EOS # 0.3 10*3/uL (0.0-0.4); EOS % 4.4 % (1.0-4.0); LYMPH # 1.3 10*3/uL (1.3-4.4); LYMPH % 18.2 % (27.0-41.0); MEAN CELL VOLUME 91.6 fl (80.0-94.0); MEAN CORPUSCULAR HGB 30.7 pg (27.0-31.0); MEAN CORPUSCULAR HGB CONC 33.5 g/dl (33.0-37.0); MEAN PLATELET VOLUME 11.2 fl (9.6-12.3); MONO # 0.6 10*3/uL (0.1-1.0); MONO % 8.3 % (3.0-9.0); NEUT # 4.8 10*3/uL (2.3-7.9); NEUT % 67.9 % (47.0-73.0); PLATELET COUNT AUTOMATED 217 10*3/uL (130-400); RED BLOOD COUNT 5.24 10*6/uL (4.50-5.90); RED CELL DISTRI WIDTH 12.5 % (0-14.5); WHITE BLOOD COUNT 7.1 10*3/uL (4.8-10.8)
[2023-06-27 10:47] LABS: ALKALINE PHOSPHATASE 89 U/L (46-116); BUN 11 mg/dl (9-23); CHLORIDE 103 mmol/L (98-107); POTASSIUM 3.9 mmol/L (3.4-5.1); SGPT/ALT 140 U/L (5-49); TOTAL PROTEIN 6.9 gm/dL (6.0-8.0)
[2023-06-27] MEDS ORDERED: NIFEdipine 30 MG TAB PO ONE (13:20)
[2023-06-27] MEDS ORDERED: diphenhydrAMINE hydrochloride 50 MG/ML VIAL IV ONE (14:05)
[2023-06-27] MEDS ORDERED: Ondansetron Hydrochloride 4 MG/2 ML VIAL IV ONE (14:05)
[2023-06-27] MEDS ORDERED: Dexamethasone Sodium Phospha 20 MG/5 ML VIAL IV ONE (14:05)
[2023-06-27] MEDS ORDERED: niCARdipine hydrochloride 25 MG in SODIUM CHLORIDE 0.9% 240 ML IV SCH (14:10)
[2023-06-27] MEDS ORDERED: Ondansetron Hydrochloride 4 MG/2 ML VIAL IV PRN (14:40)
[2023-06-27] MEDS ORDERED: SODIUM CHLORIDE 0.9% 1,000 ML IV ONE (14:45)
[2023-06-27] MEDS ORDERED: Nicotine 21 MG PATCH T SCH (15:00)
[2023-06-27] MEDS ORDERED: DEXTROSE 10 % IN WATER 250 ML IV PRN (15:20)
[2023-06-27] MEDS ORDERED: INSULIN LISPRO 1 UNIT/0.01 ML SQ SCH (16:30)
[2023-06-27] MEDS ORDERED: IBU800 MG PO (17:02)
[2023-06-27] MEDS ORDERED: GEMFIBROZIL 600 MG TAB PO SCH ×2 (18:00→22:00)
[2023-06-27] MEDS ORDERED: IBUPROFEN 600 MG TAB PO ONE (21:40)
[2023-06-28] VITALS: BP 131/80
[2023-06-28 04:00] VITALS: BP 118/67
[2023-06-28 06:22] LABS: BASO % 0.1 % (0.0-1.0); HEMATOCRIT 49.4 % (42.0-52.0); LYMPH # 1.2 10*3/uL (1.3-4.4); LYMPH % 8.3 % (27.0-41.0); MEAN CORPUSCULAR HGB 30.7 pg (27.0-31.0); MEAN CORPUSCULAR HGB CONC 33.4 g/dl (33.0-37.0); MEAN PLATELET VOLUME 11.3 fl (9.6-12.3); MONO # 0.7 10*3/uL (0.1-1.0); MONO % 4.5 % (3.0-9.0); NEUT # 12.8 10*3/uL (2.3-7.9); NEUT % 86.8 % (47.0-73.0); PLATELET COUNT AUTOMATED 249 10*3/uL (130-400); RED BLOOD COUNT 5.37 10*6/uL (4.50-5.90); RED CELL DISTRI WIDTH 12.5 % (0-14.5); WHITE BLOOD COUNT 14.8 10*3/uL (4.8-10.8)
[2023-06-28 06:54] LABS: ALKALINE PHOSPHATASE 85 U/L (46-116); BUN 17 mg/dl (9-23); CHLORIDE 103 mmol/L (98-107); CHOLESTEROL 196 mg/dL (<200); FREE T4 0.88 ng/dl (0.89-1.76); LDL CHOLESTEROL 126 mg/dL (9-159); POTASSIUM 4.3 mmol/L (3.4-5.1); SGPT/ALT 119 U/L (5-49); TOTAL PROTEIN 6.9 gm/dL (6.0-8.0); TRIGLYCERIDES 201 mg/dl (<150)
[2023-06-28 08:00] VITALS: BP 141/82
[2023-06-28] MEDS ORDERED: HYDROCHLOROTHIAZIDE 12.5 MG CAP PO SCH (10:00)
[2023-06-28] MEDS ORDERED: Losartan Potassium 50 MG TAB PO SCH (10:00)
[2023-06-28] MEDS ORDERED: NIFEdipine 30 MG TAB PO SCH (10:00)
[2023-06-28 12:00] VITALS: BP 158/87
[2023-06-28] MEDS ORDERED: LOSARTAN POTASS50 M1 PO (14:04)
[2023-06-28] MEDS ORDERED: GEMFIBROZIL600 MG PO (14:04)
[2023-06-28] MEDS ORDERED: NIFEDIPINE ER30 M1 PO (14:04)
[2023-06-28] MEDS ORDERED: HYDR12.5C PO (14:04)
[2023-06-28] MEDS ORDERED: METFORMIN XR500 MG PO (14:04)
[2023-06-28] MEDS ORDERED: LANTUS SOL100 UNIT/1 SC (14:04)
== END 2023-06-28 18:04 | disposition home or self-care (01) | DRG 305 ==
LOC: ED 09:23 → EDHOLD 14:23 → ICCU 14:23 → EDHOLD 14:50 → ICCU 15:26
PROVIDERS: Internal Medicine; ADMIT Internal Medicine; ATTEND Internal Medicine
DX: I16.1 Hypertensive emergency (principal); E87.1 Hypo-osmolality and hyponatremia; I10 Essential (primary) hypertension; J45.909 Unspecified asthma, uncomplicated; F41.1 Generalized anxiety disorder; G47.33 Obstructive sleep apnea (adult) (pediatric); R74.01 Elevation of levels of liver transaminase levels; E11.65 Type 2 diabetes mellitus with hyperglycemia; J32.2 Chronic ethmoidal sinusitis; E78.2 Mixed hyperlipidemia; Z90.49 Acquired absence of other specified parts of digestive tract; Z81.8 Family history of other mental and behavioral disorders; Z91.048 Other nonmedicinal substance allergy status; Z82.49 Family history of ischemic heart disease and other diseases of the circulatory system; Z79.4 Long term (current) use of insulin

== ENCOUNTER 2023-09-24 08:46 | Emergency (ER) | payer MEDICAID ==
[~2023-09-24] VITALS: Ht 187.9 cm; Wt 106.6 kg
[~2023-09-24 08:46] MED LIST changes: +HYDR12.5C PO; +LANTUS SOL100 UNIT/1 SC; +METFORMIN XR500 MG PO
[2023-09-24] MEDS ORDERED: AMOX-CLAV 875-1 EACH PO (10:26)
== END 2023-09-24 10:43 | disposition home or self-care (01) ==
LOC: ED 08:46
DX: J32.9 Chronic sinusitis, unspecified (principal); Z20.822 Contact with and (suspected) exposure to COVID-19; I10 Essential (primary) hypertension; F17.200 Nicotine dependence, unspecified, uncomplicated; Z88.8 Allergy status to other drugs, medicaments and biological substances; Z79.899 Other long term (current) drug therapy; Z79.4 Long term (current) use of insulin; Z90.49 Acquired absence of other specified parts of digestive tract

== ENCOUNTER 2024-01-11 12:24 | Inpatient (IN) | payer SELFPAY ==
[~2024-01-11] VITALS: Ht 187.9 cm; Wt 102.1 kg
[2024-01-11] VITALS (14 sets, daily range): BP systolic 166–225; BP diastolic 95–140
[2024-01-11] MEDS ORDERED: NIFEdipine 30 MG TAB PO SCH (12:55)
[2024-01-11] MEDS ORDERED: ENALAPRILAT 2.5 MG/2 ML VIAL IV ONE (12:55)
[2024-01-11 13:42] LABS: BUN 12 mg/dl (9-23); CHLORIDE 103 mmol/L (98-107); POTASSIUM 4.2 mmol/L (3.4-5.1)
[2024-01-11] MEDS ORDERED: Metoclopramide Hydrochloride 10 MG/2 ML VIAL IV ONE (13:55)
[2024-01-11] MEDS ORDERED: diphenhydrAMINE hydrochloride 50 MG/ML VIAL IV ONE (13:55)
[2024-01-11 16:16] LABS: BASO # 0.1 10*3/uL (0.0-0.1); BASO % 0.8 % (0.0-1.0); EOS # 0.5 10*3/uL (0.0-0.4); EOS % 5.8 % (1.0-4.0); HEMATOCRIT 49.9 % (42.0-52.0); MEAN CELL VOLUME 90.1 fl (80.0-94.0); MEAN CORPUSCULAR HGB CONC 33.3 g/dl (33.0-37.0); MEAN PLATELET VOLUME 11.8 fl (9.6-12.3); MONO # 0.6 10*3/uL (0.1-1.0); MONO % 6.8 % (3.0-9.0); NEUT # 5.2 10*3/uL (2.3-7.9); PLATELET COUNT AUTOMATED 240 10*3/uL (130-400); RED BLOOD COUNT 5.54 10*6/uL (4.50-5.90); RED CELL DISTRI WIDTH 13.2 % (0-14.5); WHITE BLOOD COUNT 8.6 10*3/uL (4.8-10.8)
[2024-01-11] MEDS ORDERED: HUMALOG 751 UNIT/0.0 SC (16:17)
[2024-01-11] MEDS ORDERED: Acetaminophen/Hydrocodone 5 MG/325 MG TABLET PO PRN (17:45)
[2024-01-11] MEDS ORDERED: TEMAZEPAM 15 MG CAP PO PRN (17:45)
[2024-01-11] MEDS ORDERED: BISACODYL 5 MG TAB PO PRN (17:45)
[2024-01-11] MEDS ORDERED: ACETAMINOPHEN 650 MG SUPP R PRN (17:45)
[2024-01-11] MEDS ORDERED: ACETAMINOPHEN 325 MG TAB PO PRN (17:45)
[2024-01-11] MEDS ORDERED: BISACODYL 10 MG SUPP R PRN (17:45)
[2024-01-11] MEDS ORDERED: Ondansetron Hydrochloride 4 MG/2 ML VIAL IV PRN (17:45)
[2024-01-11] MEDS ORDERED: Magnesium Hydroxide 30 ML UDC PO PRN (17:45)
[2024-01-11] MEDS ORDERED: Labetalol Hydrochloride 20 MG/4 ML SYR IV ONE (17:50)
[2024-01-11] MEDS ORDERED: DEXTROSE 10 % IN WATER 250 ML IV PRN (17:50)
[2024-01-11] MEDS ORDERED: INSULIN LISPRO 1 UNIT/0.01 ML SQ SCH (22:00)
[2024-01-12] VITALS (9 sets, daily range): BP systolic 154–190; BP diastolic 87–114
[2024-01-12 06:11] LABS: ALKALINE PHOSPHATASE 89 U/L (46-116); BUN 14 mg/dl (9-23); CHLORIDE 104 mmol/L (98-107); CHOLESTEROL 194 mg/dL (<200); FREE T4 1.01 ng/dl (0.89-1.76); LDL CHOLESTEROL 98 mg/dL (9-159); POTASSIUM 3.4 mmol/L (3.4-5.1); SGPT/ALT 65 U/L (5-49); TOTAL PROTEIN 7.1 gm/dL (6.0-8.0); TRIGLYCERIDES 340 mg/dl (<150)
[2024-01-12 07:22] LABS: BASO # 0.1 10*3/uL (0.0-0.1); BASO % 0.5 % (0.0-1.0); EOS # 0.3 10*3/uL (0.0-0.4); MEAN CORPUSCULAR HGB 29.9 pg (27.0-31.0); MEAN CORPUSCULAR HGB CONC 33.6 g/dl (33.0-37.0); MEAN PLATELET VOLUME 11.4 fl (9.6-12.3); MONO # 0.8 10*3/uL (0.1-1.0); MONO % 8.2 % (3.0-9.0); NEUT # 6.1 10*3/uL (2.3-7.9); NEUT % 60.1 % (47.0-73.0); PLATELET COUNT AUTOMATED 256 10*3/uL (130-400); RED BLOOD COUNT 5.62 10*6/uL (4.50-5.90); RED CELL DISTRI WIDTH 13.7 % (0-14.5); WHITE BLOOD COUNT 10.1 10*3/uL (4.8-10.8)
[2024-01-12 07:32] LABS: VITAMIN D, 25-HYDROXY 13.8 ng/mL (30-100)
[2024-01-12] MEDS ORDERED: Losartan Potassium 50 MG TAB PO SCH ×2 (10:00→22:00)
[2024-01-12] MEDS ORDERED: NIFEdipine 30 MG TAB PO SCH (10:00)
[2024-01-12] MEDS ORDERED: Enoxaparin Sodium 40 MG/0.4 ML SYR SC SCH (10:00)
[2024-01-12] MEDS ORDERED: HYDROCHLOROTHIAZIDE 12.5 MG CAP PO SCH (10:00)
[2024-01-12] MEDS ORDERED: ATORVASTATIN CALCIUM 40 MG TABLET PO SCH (10:05)
[2024-01-12] MEDS ORDERED: Cholecalciferol 2,000 UNIT TABLET (50 MCG) PO SCH (10:05)
[2024-01-12] MEDS ORDERED: Labetalol Hydrochloride 20 MG/4 ML SYR IV ONE (11:55)
[2024-01-12] MEDS ORDERED: Insulin Glargine, Recombinan 1 UNIT/0.01 ML SC SCH (22:00)
[2024-01-13] VITALS: BP 144/68
[2024-01-13 06:39] LABS: BASO # 0.1 10*3/uL (0.0-0.1); BASO % 0.9 % (0.0-1.0); EOS # 0.6 10*3/uL (0.0-0.4); EOS % 6.4 % (1.0-4.0); HEMATOCRIT 49.3 % (42.0-52.0); MEAN CORPUSCULAR HGB 29.9 pg (27.0-31.0); MEAN CORPUSCULAR HGB CONC 32.9 g/dl (33.0-37.0); MEAN PLATELET VOLUME 11.1 fl (9.6-12.3); MONO # 0.9 10*3/uL (0.1-1.0); MONO % 10.2 % (3.0-9.0); NEUT # 4.5 10*3/uL (2.3-7.9); NEUT % 50.7 % (47.0-73.0); PLATELET COUNT AUTOMATED 256 10*3/uL (130-400); RED BLOOD COUNT 5.42 10*6/uL (4.50-5.90); RED CELL DISTRI WIDTH 13.4 % (0-14.5); WHITE BLOOD COUNT 8.9 10*3/uL (4.8-10.8)
[2024-01-13 07:00] LABS: BUN 18 mg/dl (9-23); CHLORIDE 102 mmol/L (98-107); POTASSIUM 3.4 mmol/L (3.4-5.1)
[2024-01-13 08:00] VITALS: BP 168/92
[2024-01-13] MEDS ORDERED: HYDROCHLOROTHIAZIDE 25 MG TAB PO SCH (10:00)
[2024-01-13 10:15] VITALS: BP 162/110
[2024-01-13 15:00] VITALS: BP 152/88
[2024-01-13 16:00] VITALS: BP 152/88
[2024-01-13] MEDS ORDERED: ADMELOG100 UNIT/1 SQ (16:13)
[2024-01-13] MEDS ORDERED: LANTUS100 UNIT/1 SC (16:13)
[2024-01-13] MEDS ORDERED: HYDR25T PO (16:13)
[2024-01-13] MEDS ORDERED: ATORVASTATIN CA40 M1 PO (16:13)
[2024-01-13] MEDS ORDERED: NIFEDIPINE ER30 M1 PO (16:13)
== END 2024-01-13 17:22 | disposition home or self-care (01) | DRG 305 ==
LOC: ED 12:24 → EDHOLD 17:21 → 4E 17:21
PROVIDERS: Emergency Medicine; Student in an Organized Health Care Education/Training Program; ADMIT Family Medicine; ATTEND Family Medicine
DX: I16.1 Hypertensive emergency (principal); F17.210 Nicotine dependence, cigarettes, uncomplicated; E11.65 Type 2 diabetes mellitus with hyperglycemia; M32.8 Other forms of systemic lupus erythematosus; J01.40 Acute pansinusitis, unspecified; J45.20 Mild intermittent asthma, uncomplicated; E66.811 Obesity, class 1; E78.2 Mixed hyperlipidemia; I11.9 Hypertensive heart disease without heart failure; F41.1 Generalized anxiety disorder; G47.33 Obstructive sleep apnea (adult) (pediatric); M32.9 Systemic lupus erythematosus, unspecified; Z82.49 Family history of ischemic heart disease and other diseases of the circulatory system; Z79.4 Long term (current) use of insulin; Z71.6 Tobacco abuse counseling; Z88.8 Allergy status to other drugs, medicaments and biological substances; Z79.899 Other long term (current) drug therapy

== ENCOUNTER → 2024-01-16 | Outpatient (CLI) | payer SELFPAY ==
[~2024-01-16] MED LIST changes: +ADMELOG100 UNIT/1 SQ; +ATORVASTATIN CA40 M1 PO; +HUMALOG 751 UNIT/0.0 SC; +HYDR25T PO; +LANTUS100 UNIT/1 SC
== END | disposition home or self-care (01) ==
LOC: RESCLI 09:22
PROVIDERS: ATTEND Internal Medicine
DX: E11.9 Type 2 diabetes mellitus without complications (principal); I10 Essential (primary) hypertension; E78.5 Hyperlipidemia, unspecified; F17.200 Nicotine dependence, unspecified, uncomplicated; Z79.899 Other long term (current) drug therapy; Z98.890 Other specified postprocedural states

== ENCOUNTER 2024-04-13 08:58 | Emergency (ER) | payer SELFPAY ==
[~2024-04-13] VITALS: Ht 187.9 cm; Wt 104.3 kg
[2024-04-13] MEDS ORDERED: AMOXICILLIN875 MG PO (09:40)
[2024-04-13 10:07] LABS: BASO # 0.1 10*3/uL (0.0-0.1); BASO % 0.9 % (0.0-1.0); EOS # 0.6 10*3/uL (0.0-0.4); EOS % 7.1 % (1.0-4.0); HEMATOCRIT 49.1 % (42.0-52.0); MEAN CELL VOLUME 89.3 fl (80.0-94.0); MEAN CORPUSCULAR HGB 29.6 pg (27.0-31.0); MEAN CORPUSCULAR HGB CONC 33.2 g/dl (33.0-37.0); MEAN PLATELET VOLUME 10.6 fl (9.6-12.3); MONO # 0.9 10*3/uL (0.1-1.0); NEUT # 5.2 10*3/uL (2.3-7.9); NEUT % 60.3 % (47.0-73.0); PLATELET COUNT AUTOMATED 237 10*3/uL (130-400); RED CELL DISTRI WIDTH 13.2 % (0-14.5); WHITE BLOOD COUNT 8.6 10*3/uL (4.8-10.8)
[2024-04-13 10:36] LABS: BUN 18 mg/dl (9-23); CHLORIDE 102 mmol/L (98-107); POTASSIUM 3.9 mmol/L (3.4-5.1)
[2024-04-13] MEDS ORDERED: INSULIN REGULAR, HUMAN 1 UNIT/0.01 ML IV ONE (10:45)
[2024-04-13] MEDS ORDERED: SEPTDS PO (10:53)
== END 2024-04-13 11:17 | disposition home or self-care (01) ==
LOC: ED 08:58
PROVIDERS: Internal Medicine
DX: L03.221 Cellulitis of neck (principal); E11.9 Type 2 diabetes mellitus without complications; I10 Essential (primary) hypertension; F41.9 Anxiety disorder, unspecified; J45.909 Unspecified asthma, uncomplicated; E78.00 Pure hypercholesterolemia, unspecified; F17.200 Nicotine dependence, unspecified, uncomplicated; Z88.8 Allergy status to other drugs, medicaments and biological substances; Z90.49 Acquired absence of other specified parts of digestive tract

== ENCOUNTER 2024-05-09 13:38 | Emergency (ER) | payer SELFPAY ==
[~2024-05-09] VITALS: Ht 187.9 cm; Wt 106.6 kg
[~2024-05-09 13:38] MED LIST changes: +AMOXICILLIN875 MG PO; +SEPTDS PO
[2024-05-09] MEDS ORDERED: VIBRAMYCIN100 MG PO (14:12)
== END 2024-05-09 14:34 | disposition home or self-care (01) ==
LOC: ED 13:38
DX: L02.11 Cutaneous abscess of neck (principal); Z91.048 Other nonmedicinal substance allergy status; Z79.899 Other long term (current) drug therapy; Z90.49 Acquired absence of other specified parts of digestive tract; F17.200 Nicotine dependence, unspecified, uncomplicated

== ENCOUNTER → 2024-10-05 | Outpatient (CLI) | payer SELFPAY ==
[~2024-10-05] MED LIST changes: +VIBRAMYCIN100 MG PO
[2024-10-05 10:12] LABS: BASO # 0.1 10*3/uL (0.0-0.1); BASO % 1.2 % (0.0-1.0); EOS # 0.8 10*3/uL (0.0-0.4); EOS % 8.3 % (1.0-4.0); MEAN CELL VOLUME 90.1 fl (80.0-94.0); MEAN CORPUSCULAR HGB 30.3 pg (27.0-31.0); MEAN PLATELET VOLUME 11.3 fl (9.6-12.3); MONO # 0.9 10*3/uL (0.1-1.0); MONO % 9.4 % (3.0-9.0); NEUT # 5.4 10*3/uL (2.3-7.9); NEUT % 54.0 % (47.0-73.0); NUCLEATED RED BLOOD CELL 0.0 % (0.0-0.0); NUCLEATED RED BLOOD CELL 0.0 10*3/uL (0.0-0.0); PLATELET COUNT AUTOMATED 287 10*3/uL (130-400); RED CELL DISTRI WIDTH 13.6 % (0-14.5)
[2024-10-05 10:54] LABS: BUN 20 mg/dl (9-23); SGPT/ALT 73 U/L (5-49)
== END ==
LOC: RESCLI 01:15 → LAB 01:15 → RESCLI 08:08
PROVIDERS: ATTEND Internal Medicine
DX: I10 Essential (primary) hypertension (principal); E11.9 Type 2 diabetes mellitus without complications; E78.5 Hyperlipidemia, unspecified; Z09 Encounter for follow-up examination after completed treatment for conditions other than malignant neoplasm